=== PATIENT | male | born 1970 | race Two or more races ===

== ENCOUNTER 2024-07-22 13:47 | Emergency (ER) | payer MEDICAID, SELFPAY ==
[2024-07-22 13:57] VITALS: BP 139/88; PULSE 97; RESP 18; TEMP 37.1; O2SAT 99; BMI 37.5
--- NOTE | 2024-07-22 14:11 | XR_ITS ---
Examination: Testicular sonography complete TECHNIQUE: Multiple high resolution grayscale sonographic images testes with assessment arterial inflow venous outflow Doppler spectral analysis, flow analysis Exam date and time: July 22, 2024 1450 hours INDICATIONS: Bilateral testicular pain beginning 2 weeks ago FINDINGS: Right testis 4.6 x 2.5 x 3.3 cm Epididymis 16mm Arterial flow testicle. No testicular mass Moderate varicocele Left testis 4.9 x 2.7 x 3.3 cm Epididymis 13 mm Arterial flow testicle. No testicular mass Moderate varicocele Mild hydrocele IMPRESSION: No testicular torsion or testicular mass Bilateral varicoceles
--- NOTE | 2024-07-22 14:12 | PD.EDRME ---
Rapid Medical Screening Exam RME Arrival date/time: 07/22/24 13:47 53-year-old male presents to the emergency department with complaints of right testicle pain and dysuria. I have greeted and performed a focused initial assessment of this patient. Initial appropriate labs ordered at this time. A comprehensive ED assessment and evaluation of the patient and analysis of all test and completion of medical decision making process will be conducted by additional ED provider. Chief Complaint: Urogenital-Male Time Seen by Provider: 07/22/24 14:05 Vital signs: Vital Signs Temperature 98.7 F 07/22/24 13:57 Pulse Rate 97 07/22/24 13:57 Respiratory Rate 18 07/22/24 13:57 Blood Pressure 139/88 H 07/22/24 13:57 Pulse Oximetry (%) 99 07/22/24 13:57 Oxygen Delivery Method Room Air 07/22/24 13:57
[2024-07-22 15:01] LABS: Collection Type, Urine Clean Catch; Squamous Epithelial Cell,Urine 0 /hpf (0-5)
[2024-07-22 15:05] LABS: Bacteria,Urine Rare; Bilirubin,Urine Negative (Negative); Blood,Urine Negative (Negative); Clarity,Urine Clear (Clear/Hazy); Color,Urine Lt-Yellow (Lt Yel-Yel); Culture Indicated,Urine Not Indicated; Glucose, Urine 4+ (Negative); Ketones,Urine Negative (Negative); Leukocyte Esterase,Urine Negative (Negative); Nitrite,Urine Negative (Negative); Protein,Urine Negative (Neg - Trace); RBC,Urine 1 /hpf (0-3); Specific Gravity,Urine 1.025 (1.001-1.035); Urobilinogen,Urine Negative mg/dL (0.0-1.0); WBC,Urine 1 /hpf (0-5)
[2024-07-22 15:33] LABS: Amphetamine/Methamp Scrn,U Positive (Negative); Barbiturate Screen,Urine Negative (Negative); Benzodiazepines Screen,Urine Negative (Negative); Benzoylecgonine Screen, Ur Negative (Negative); Fentanyl Screen,Urine Negative (Negative); Opiate Screen,Urine Negative (Negative); THC Screen,Urine Negative (Negative)
--- NOTE | 2024-07-22 21:30 | PC.NURSE ---
CALLED PT IN ER LOBBY AND NO ANSWER
--- NOTE | 2024-07-22 21:32 | PD.EDMALE ---
ED Male Genitalurinary RME/HPI General Chief complaint: Urogenital-Male Stated complaint: PAIN IN PRIVATES X 2 WKS WITH PRESSURE URINATING Time Seen by Provider: 07/22/24 14:05 Arrival date/time: 07/22/24 13:47 Limitations: no limitations RME / HPI RME / HPI Narrative: 07/22/24 13:47 53-year-old male presents to the emergency department with complaints of right testicle pain and dysuria. I have greeted and performed a focused initial assessment of this patient. Initial appropriate labs ordered at this time. A comprehensive ED assessment and evaluation of the patient and analysis of all test and completion of medical decision making process will be conducted by additional ED provider. Dr. Pichardo's Main ED Evaluation: 53yo male with pmhx asthma, methamphetamine use presents to the ED for complaints of right testicular pain and dysuria. Patient states he's had right testicular pain for the last 2 weeks, describing it as pressure in nature. He states his pain has been progressively getting worse and has developed dysuria, so he came in for evaluation. He denies any back pain, recent sexual intercourse, abdominal pain or any other associated symptoms. Denies any history of STDs. No known allergies. Related Data Previous Rx's ?Medication ?Instructions ?Recorded hydrocodone 5 mg-acetaminophen 325 1 tab PO Q8H PRN pain #14 tabs 05/30/ mg tablet Allergies Allergy/AdvReac Type Severity Reaction Status Date / Time No Known Allergies Allergy Verified 07/22/24 13:49 Review of Systems Review of Systems Systems Reviewed: All systems reviewed, normal except as documented Past Medical History Past Medical History NEUROLOGIC: Positive Neurological Disorders, Migraine and Head Trauma CARDIAC: Negative Congestive Heart Failure RESPIRATORY: Positive Asthma; Negative Chronic Obstructive Pulmonary Disease (COPD) GASTROINTESTINAL: Positive Gastrointestinal Disorders and Gastroesophageal Reflux Disease GENITOURINARY: Negative Genitourinary Disorders or Renal Disease MUSCULOSKELETAL: Negative Musculoskeletal Disorders ENT: Positive Head Trauma ENDOCRINE: Negative Endocrine Disorders, Diabetes Mellitus Type 1 or Diabetes Mellitus Type 2 HEMATOLOGIC: Negative Blood Disorders PSYCHO/SOCIAL: Positive Depression and Anxiety OTHER HISTORY: Negative MRSA, Clostridium Difficile or Cancer Social History SMOKING STATUS: Never smoker SUBSTANCE USE: methamphetamine ED Exam General Limitations: Present no limitations General appearance: Present alert and in no apparent distress Head Head exam: Present atraumatic Eye Eye exam: Present normal appearance, PERRL and EOMI ENT ENT exam: Present normal exam, normal oropharynx and mucous membranes moist Neck Neck exam: Present normal inspection, full ROM and trachea midline Chest Chest inspection: Present normal inspection and symmetric chest wall rise Respiratory Respiratory exam: Present normal lung sounds bilaterally Cardiovascular Cardiovascular exam: Present regular rate, normal rhythm and normal heart sounds Abdominal Exam Abdominal exam: Present soft and normal bowel sounds Extremities Exam Extremities exam: Present normal inspection and full ROM Back Exam Back exam: Present normal inspection and full ROM Neurological Exam Neurological exam: Present alert, oriented X3 and CN II-XII intact Psychiatric Psychiatric exam: Present normal affect and normal mood Skin Skin exam: Present warm, dry, intact and normal color Course Quality Measures none Orders Category Date Time Status US testicular Stat Exams 07/22/24 14:11 Completed Chlamydia/GC/TV - PCR Stat Lab 07/22/24 14:55 Completed Drug Screen,Urine Stat Lab 07/22/24 14:55 Completed Urinalysis, C/S if Indicated Stat Lab 07/22/24 14:55 Completed Vital Signs Vital signs: Vital Signs Temperature 98.7 F 07/22/24 13:57 Pulse Rate 97 07/22/24 13:57 Respiratory Rate 18 07/22/24 13:57 Blood Pressure 139/88 H 07/22/24 13:57 Pulse Oximetry (%) 99 07/22/24 13:57 Oxygen Delivery Method Room Air 07/22/24 13:57 Pulse ox is 99% on room air, which is normal according to my interpretation. Urogenital - Male MDM Narrative MDM Narrative:: HPI 53-year-old male coming in with right testicular pain and dysuria. Patient denies fevers or back pain. No radiation Pain improved with Pain worse with Past medical history includes: Past meth use, asthma, depression, anxiety Past social history: No history of smoking in the past. History of methamphetamine use. X 1 days ROS: No back pain. History of STD no No recent sex Labs Urinalysis is reviewed and interpreted by me. No evidence of UTI or hematuria. Drug screen interpreted and read by me. Positive amphetamine. Urine chlamydia, gonorrhea, and trichomonas were sent and is pending. Patient data External records reviewed:: [facility] previous records (Per chart review, patient has no relevant ED visits or admissions to this facility.) Clinical information provided by:: patient Social determinants that could affect healthcare access:: substance use (history of methamphetamine use) Patient has the following chronic illnesses:: asthma, GERD How is presenting disease/condition affected by chronic disease/condition?: uneffected by Evaluation data The following diagnostics were reviewed and interpreted by me:: lab results Lab and/or radiology exams considered but not ordered:: none Interpretation Summary: See above under MDM narrative. Medications / Prescriptions Medications or Prescriptions considered but not ordered:: none Medication administrations:: none Consultations Consultation(s) initiated? (list below): No Diagnosis Urogenital Male Differential Diagnosis: urinary tract infection, urethritis, epididymitis and prostatitis Most likely diagnosis given after review of the tests above:: see below Admission Indicated Admission indicated?: not indicated Admission Request Was there a request for admission?: No Disposition Plan Disposition Plan: other (specify) (Patient eloped prior to final disposition.) Discharge Plan Plan Patient Disposition: Elopement Patient condition on transfer: Stable Prescriptions/Referrals Prescriptions/Med Rec: No Action hydrocodone-acetaminophen 5-325 mg tablet 1 tab PO Q8H MDD 3 PRN (Reason: pain) Qty: 14 0RF Referrals: Cathi Bush NP [Primary Care Provider] - In 1 week Problem List Clinical Impression: Eloped from emergency department Patient/Caregiver Discharge Instructions Print Language: [place]
--- NOTE | 2024-07-22 22:03 | PC.NURSE ---
CALLED PT IN ER LOBBY AND OUTSIDE BUT NO ANSWER AT THIS TIME
--- NOTE | 2024-07-22 22:31 | PC.NURSE ---
CALLED PT OUTSIDE OF ER AND IN LOBBY AND NO ANSWER.
[2024-07-23 17:23] LABS: Chlamydia trachomatis PCR Negative (Not Detect); Neisseria Gonorrhoeae DNA PCR Negative (Not Detect); Trichomonas Negative (Negative)
== END 2024-07-22 22:32 | disposition left against medical advice (07) ==
PROVIDERS: Nurse Practitioner Primary Care; Emergency Provider Emergency Medicine; PCP Nurse Practitioner Family
DX: I86.1 Scrotal varices (principal); R30.0 Dysuria; J45.909 Unspecified asthma, uncomplicated; Z53.21 Procedure and treatment not carried out due to patient leaving prior to being seen by health care provider
CPT/HCPCS: 76870; 80307; 81001; 87491; 87591; 87661; 99281

== ENCOUNTER 2024-08-05 05:45 | Emergency (ER) | payer MEDICAID, SELFPAY ==
[2024-08-05 05:46] VITALS: BMI 44.1
[2024-08-05 05:53] VITALS: BP 137/94; PULSE 103; RESP 18; TEMP 36.7; O2SAT 96
--- NOTE | 2024-08-05 06:01 | PD.EDURI ---
Upper Respiratory Inf. RME/HPI General Chief Complaint: Flu Like Symptoms Stated Complaint: GENERAL WEAKNESS Time Seen by Provider: 08/05/24 06:00 Arrival date/time: 08/05/24 05:45 Limitations: no limitations RME / HPI RME / HPI Narrative: Generlized weakness and stuff like that x couple of days. Wants to be tested for Covid. No fever. No cough. Related Data Previous Rx's ?Medication ?Instructions ?Recorded hydrocodone 5 mg-acetaminophen 325 1 tab PO Q8H PRN pain #14 tabs 05/30/ mg tablet Allergies Allergy/AdvReac Type Severity Reaction Status Date / Time No Known Allergies Allergy Verified 07/22/24 13:49 Review of Systems Review of Systems Systems Reviewed: All systems reviewed, normal except as documented ED Exam General Limitations: Present no limitations General appearance: Present alert Eye Eye exam: Present normal appearance ENT ENT exam: Present normal exam Neck Neck exam: Present normal inspection Respiratory Respiratory exam: Present normal lung sounds bilaterally Cardiovascular Cardiovascular exam: Present regular rate and normal rhythm Abdominal Exam Abdominal exam: Present soft Course Quality Measures none Orders Category Date Time Status Bedside COVID-19 Antigen Test NOW Care 08/05/24 06:03 Completed Bedside Influenza A&B Antigen Test NOW Care 08/05/24 06:03 Completed Vital Signs Vital signs: Vital Signs Temperature 98.1 F 08/05/24 05:53 Pulse Rate 103 H 08/05/24 05:53 Respiratory Rate 18 08/05/24 05:53 Blood Pressure 137/94 H 08/05/24 05:53 Pulse Oximetry (%) 96 08/05/24 05:53 Oxygen Delivery Method Room Air 08/05/24 05:53 Upper Respiratory Infection Patient data External records reviewed:: None Clinical information provided by:: patient Social determinants that could affect healthcare access:: none Patient has the following chronic illnesses:: 0 How is presenting disease/condition affected by chronic disease/condition?: no chronic disease Evaluation data The following diagnostics were reviewed and interpreted by me:: lab results Lab and/or radiology exams considered but not ordered:: Negative for influenza A, B and Covid Interpretation Summary: N/A Medications / Prescriptions Medications or Prescriptions considered but not ordered:: N/A Medication administrations:: N/A Consultations Consultation(s) initiated? (list below): No Diagnosis Upper Respiratory Differential Diagnosis: upper respiratory infection, viral infection and influenza Most likely diagnosis given after review of the tests above:: Common cold Admission Indicated Admission indicated?: not indicated Admission Request Was there a request for admission?: No Disposition Plan Disposition Plan: Discharge Discharge Attestation Discharge Attestation: The patient and all family members were given an opportunity to ask questions and understood the discharge instructions. Discharge instructions specifically effects, indications for sooner follow up or return to the emergency department, and the expected course of current diagnosis. Patient condition: Stable Discharge Plan Plan Patient Disposition: HOME (Self Care) Patient condition on transfer: Stable Prescriptions/Referrals Prescriptions/Med Rec: No Action hydrocodone-acetaminophen 5-325 mg tablet 1 tab PO Q8H MDD 3 PRN (Reason: pain) Qty: 14 0RF Referrals: Cathi Bush FOOD AND BEVERAGE ASSISTANT MANAGER [Primary Care Provider] - In 1 week Problem List Clinical Impression: Common cold Patient/Caregiver Discharge Instructions Education Materials: ED URI, Viral, No Abx (Adult) Print Language: [place]ian Stand Alone Forms: Marcela Award Info., Patient Portal Info Letter
== END 2024-08-05 06:35 | disposition home or self-care (01) ==
PROVIDERS: Emergency Provider Emergency Medicine; PCP Nurse Practitioner Family
DX: J00 Acute nasopharyngitis [common cold] (principal)
CPT/HCPCS: 87400; 87811; 99283

== ENCOUNTER 2024-08-18 12:03 | Emergency (ER) | payer MEDICAID, SELFPAY ==
--- NOTE | 2024-08-18 12:11 | XR_ITS ---
Examination: Testicular sonography complete TECHNIQUE: By resolution grayscale sonographic images testes, assessment arterial inflow venous outflow Doppler spectral analysis carful analysis Exam date and time: August 18, 2024 1249 hours COMPARISON: July 22, 2024 INDICATIONS: Right testicular pain and intermittent swelling beginning 2 months ago FINDINGS: Right testis 4.8 x 2.4 x 3.4 cm Epididymis 15 mm Arterial flow testicle. No testicular mass Left testis 4.7 x 2.3 x 3.6 cm Epididymis 12 mm Arterial flow testicle. No testicular mass Bilateral mild thickening of the scrotal call IMPRESSION: No testicular torsion or testicular mass
[2024-08-18 12:52] LABS: Collection Type, Urine Clean Catch
[2024-08-18 13:08] LABS: Bilirubin,Urine Negative (Negative); Blood,Urine Negative (Negative); Clarity,Urine Clear (Clear/Hazy); Color,Urine Lt-Yellow (Lt Yel-Yel); Culture Indicated,Urine Not Indicated; Glucose, Urine 4+ (Negative); Hyaline Casts,Urine < 1 /hpf (0-1); Ketones,Urine Negative (Negative); Leukocyte Esterase,Urine Negative (Negative); Nitrite,Urine Negative (Negative); Protein,Urine Negative (Neg - Trace); RBC,Urine 1 /hpf (0-3); Specific Gravity,Urine 1.026 (1.001-1.035); Squamous Epithelial Cell,Urine 1 /hpf (0-5); Urobilinogen,Urine Negative mg/dL (0.0-1.0); WBC,Urine < 1 /hpf (0-5)
[2024-08-18 13:10] VITALS: BP 138/94; PULSE 102; RESP 20; TEMP 37; O2SAT 97
[2024-08-18 13:19] LABS: Sperm,Urine Present
--- NOTE | 2024-08-18 14:40 | PD.EDMALE ---
ED Male Genitalurinary RME/HPI General Chief complaint: Urogenital-Male Stated complaint: RIGHT SIDED TESTICULAR PAIN/SWELLING Time Seen by Provider: 08/18/24 12:51 Arrival date/time: 08/18/24 12:03 RME / HPI RME / HPI Narrative: This section includes all my notes and documentations, including HPI, PE, and ED course. Misael Holbrook MD HPI: 53-year-old male here to be evaluated with a couple month history of right groin pain. Seems to be worse with pushing too hard during bowel movements and lifting heavy weights. No dysuria urinary frequency or other urinary symptoms. No fever or chills. No nausea or vomiting. No back pain or flank pain or abdominal pain. No other complaints. ROS: All negative except as documented in HPI. Physical Exam: General: Alert and oriented. No acute distress when remaining still. Eyes: Conjunctivae and lids clear. ENT: No nasal congestion. Neck: Supple. Heart: RRR. Lungs: No respiratory distress. Abdomen: Soft and nontender. Normal bowel sounds. No distension. No rebound or guarding. Back: No CVA tenderness. Skin: Warm and dry. Neuro: Alert and oriented X 3. Genitalia: Normal male external anatomy. No scrotal erythema or edema or calor or tenderness. Equivocal left inguinal hernia. My review of the testicular ultrasound report is no acute findings. My interpretation of the UA is normal. And urine GC and chlamydia and trichomonas negative. At this point, diagnoses include right inguinal hernia. Recommended supportive care and more outpatient workup. Based on my best medical judgment, made decision no further evaluation or treatment indicated at this time. Patient understands and agrees to the discharge instructions customized and printed, see below. Discharge Instructions from Dr. Holbrook: -- After evaluation, your right groin pain is due to small right inguinal hernia (see attached).? However, you don't need emergent surgery.? Avoid intra-abdominal pressure (from coughing too hard, pushing too hard during bowel movements, lifting anything heavy, etc). --See your doctor on 08/19/2024 for recheck and further care. Ask to review all test results and official radiology reports, to make sure you receive all necessary follow-ups and monitoring. Ask for referral to see a general surgeon to assess for elective surgery. --Seek immediate medical care with intolerable pain, fever, or with any concerns. Misael Holbrook MD Related Data Previous Rx's ?Medication ?Instructions ?Recorded hydrocodone 5 mg-acetaminophen 325 1 tab PO Q8H PRN pain #14 tabs 05/30/ mg tablet Allergies Allergy/AdvReac Type Severity Reaction Status Date / Time No Known Allergies Allergy Verified 07/22/24 13:49 Course Quality Measures none Orders Category Date Time Status Glucose [Bedside Blood Glucose] NOW Care 08/18/24 13:28 Completed US testicular Stat Exams 08/18/24 12:11 Completed Chlamydia/GC/TV - PCR Stat Lab 08/18/24 12:46 Completed UA, C/S IF [Urinalysis, C/S if Indicated] Stat Lab 08/18/24 12:46 Completed Vital Signs Vital signs: Vital Signs Temperature 98.6 F 08/18/24 13:10 Pulse Rate 102 H 08/18/24 13:10 Respiratory Rate 20 08/18/24 13:10 Blood Pressure 138/94 H 08/18/24 13:10 Pulse Oximetry (%) 97 08/18/24 13:10 Oxygen Delivery Method Room Air 08/18/24 13:10 Urogenital - Male Patient data External records reviewed:: [facility] previous records Clinical information provided by:: patient Social determinants that could affect healthcare access:: none Patient has the following chronic illnesses:: Asthma How is presenting disease/condition affected by chronic disease/condition?: uneffected by Evaluation data The following diagnostics were reviewed and interpreted by me:: radiology exam(s) Lab and/or radiology exams considered but not ordered:: None Interpretation Summary: My review of the testicular ultrasound report is no acute findings Medications / Prescriptions Medications or Prescriptions considered but not ordered:: None Medication administrations:: None Consultations Consultation(s) initiated? (list below): No Diagnosis Urogenital Male Differential Diagnosis: urinary tract infection, urethritis, epididymitis and inguinal hernia Most likely diagnosis given after review of the tests above:: Right inguinal hernia Admission Indicated Admission indicated?: not indicated Explain why admission is indicated or not indicated:: Admission criteria not met Admission Request Was there a request for admission?: No Disposition Plan Disposition Plan: Discharge Discharge Attestation Discharge Attestation: The patient and all family members were given an opportunity to ask questions and understood the discharge instructions. Discharge instructions specifically effects, indications for sooner follow up or return to the emergency department, and the expected course of current diagnosis. Patient condition: Stable Discharge Plan Plan Patient Disposition: HOME (Self Care) Prescriptions/Referrals Prescriptions/Med Rec: No Action hydrocodone-acetaminophen 5-325 mg tablet 1 tab PO Q8H MDD 3 PRN (Reason: pain) Qty: 14 0RF Referrals: Cathi Bush TELEPHONE SURVEYOR [Primary Care Provider] - In 1 week Problem List Clinical Impression: Inguinal hernia Patient/Caregiver Discharge Instructions Discharge Activity: activity as tolerated Education Materials: ED Hernia (Adult) Additional Instructions: Discharge Instructions from Dr. Holbrook: -- After evaluation, your right groin pain is due to small right inguinal hernia (see attached).? However, you don't need emergent surgery.? Avoid intra-abdominal pressure (from coughing too hard, pushing too hard during bowel movements, lifting anything heavy, etc). --See your doctor on 08/19/2024 for recheck and further care. Ask to review all test results and official radiology reports, to make sure you receive all necessary follow-ups and monitoring. Ask for referral to see a general surgeon to assess for elective surgery. --Seek immediate medical care with intolerable pain, fever, or with any concerns. Print Language: Estonian Stand Alone Forms: Marcela Award Info., Patient Portal Info Letter
[2024-08-18 16:51] LABS: Chlamydia trachomatis PCR Negative (Not Detect); Neisseria Gonorrhoeae DNA PCR Negative (Not Detect); Trichomonas Negative (Negative)
== END 2024-08-18 14:48 | disposition home or self-care (01) ==
PROVIDERS: Nurse Practitioner Primary Care; Emergency Provider Emergency Medicine; PCP Nurse Practitioner Family
DX: K40.90 Unilateral inguinal hernia, without obstruction or gangrene, not specified as recurrent (principal)
CPT/HCPCS: 76870; 81001; 87491; 87591; 87661; 99284

== ENCOUNTER 2025-05-27 05:12 | Emergency (ER) | payer MEDICAID, SELFPAY ==
[2025-05-27 05:19] VITALS: BP 163/111; PULSE 103; RESP 19; TEMP 36.6; O2SAT 96
--- NOTE | 2025-05-27 05:33 | XR_ITS ---
Examination: Testicular sonography complete Technique: Grayscale sonographic images testes, assessment arterial inflow venous outflow Doppler spectral analysis carful analysis Date and time: May 27, 2025, 0722 hrs. Indications: Bilateral testicular pain beginning one week ago Findings: Right testis 4.7 cm epididymis 26 mm Arterial flow testicle. No testicular mass. Mild varicocele. Mild hydrocele. Left testis 4.8 cm epididymis 17 mm Arterial flow testicle. No testicular mass Mild varicocele Mild hydrocele Impression: No testicular torsion or testicular mass Bilateral epididymitis
--- NOTE | 2025-05-27 05:34 | PD.EDRME ---
Rapid Medical Screening Exam [facility] Arrival date/time: 05/27/25 05:12 54M with history of meth use presents to ED with 1 week of testicular pain and dysuria. Patient would like to be tested for GC, but denies discharge. Chief Complaint: Urogenital-Male Vital signs: Vital Signs Temperature 97.9 F 05/27/25 05:19 Pulse Rate 103 H 05/27/25 05:19 Respiratory Rate 19 05/27/25 05:19 Blood Pressure 163/111 H 05/27/25 05:19 Pulse Oximetry (%) 96 05/27/25 05:19 Oxygen Delivery Method Room Air 05/27/25 05:19
[2025-05-27 05:52] LABS: Collection Type, Urine Clean Catch
[2025-05-27 06:00] LABS: Bilirubin,Urine Negative (Negative); Blood,Urine Negative (Negative); Clarity,Urine Clear (Clear/Hazy); Color,Urine Yellow (Lt Yel-Yel); Culture Indicated,Urine Not Indicated; Glucose, Urine 4+ (Negative); Ketones,Urine Negative (Negative); Leukocyte Esterase,Urine Negative (Negative); Nitrite,Urine Negative (Negative); PH,Urine 5.5 (5.0-7.0); Protein,Urine Trace (Neg - Trace); RBC,Urine 8 /hpf (0-3); Specific Gravity,Urine 1.031 (1.001-1.035); Squamous Epithelial Cell,Urine 6 /hpf (0-5); Urobilinogen,Urine 2.0 mg/dL (0.0-1.0); WBC,Urine 3 /hpf (0-5)
[2025-05-27 06:58] LABS: Basophils # (Auto) 0.1 Thou/mm3 (0.0-0.2); Basophils % (Auto) 1 % (0-2.5); Eosinophils # (Auto) 0.4 Thou/mm3 (0.0-0.5); Eosinophils % (Auto) 4 % (0-10); Hematocrit 44.6 % (41.0-53.0); Hemoglobin 15.1 g/dL (13.5-16.0); Immature Granulocytes Auto 0.02 Thou/mm3 (0.00-0.00); Lymphocytes # (Auto) 3.5 Thou/mm3 (1.0-4.8); Lymphocytes % (Auto) 38 % (10-50); Mean Corpuscular HGB Conc 33.9 g/dl (31.0-37.0); Mean Corpuscular Hemoglobin 28.9 pg (25.0-35.0); Mean Corpuscular Volume 85 fL (80-100); Monocytes # (Auto) 0.8 Thou/mm3 (0.0-0.8); Monocytes % (Auto) 9 % (0-12); Neutrophils # (Auto) 4.4 Thou/mm3 (1.8-7.7); Neutrophils % (Auto) 48 % (37-80); Nucleated Red Blood Cell # 0.00 Thou/mm3 (0.00-0.00); Nucleated Red Blood Cell % 0 /100 WBC (0); Platelet Count 339 Thou/mm3 (140-440); RDW Standard Deviation 38.7 fL (35.1-43.9); Red Blood Count 5.22 Miln/mm3 (4.50-5.90); White Blood Count 9.3 Thou/mm3 (3.8-10.6)
[2025-05-27 07:09] VITALS: BP 143/94; PULSE 89; RESP 19; TEMP 36.3; O2SAT 96
[2025-05-27 07:16] LABS: Anion Gap 8 (7-16); BUN/Creatinine Ratio 9 Ratio (12-20); Blood Urea Nitrogen 11 mg/dL (9-23); Calcium 9.2 mg/dL (8.3-10.6); Carbon Dioxide 27.5 mMol/L (20.0-31.0); Chloride 107 mMol/L (98-107); Creatinine (Component) 1.2 mg/dL (0.6-1.3); Glucose 226 mg/dL (74-106); Osmolality,Calculated 289 (275-295); Potassium 4.2 mMol/L (3.4-5.1); Sodium 142 mMol/L (136-145); eGFR > 60 See Note
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
[2025-05-27 12:54] LABS: Chlamydia trachomatis PCR Negative (Not Detect); Neisseria Gonorrhoeae DNA PCR Negative (Not Detect); Trichomonas Negative (Negative)
== END 2025-05-27 07:58 | disposition home or self-care (01) ==
PROVIDERS: Nurse Practitioner Primary Care; Physician Assistant; Emergency Provider Family Medicine
DX: N45.1 Epididymitis (principal); F15.10 Other stimulant abuse, uncomplicated; I10 Essential (primary) hypertension; E11.9 Type 2 diabetes mellitus without complications
CPT/HCPCS: 36415; 76870; 80048; 80053; 81001; 83036; 85025; 87491; 87591; 87661; 99283